=== PATIENT | female | born 1965 | race Caucasian/White ===

== ENCOUNTER 2016-05-21 19:01 | Emergency (ER) | payer SELFPAY ==
[~2016-05-21] VITALS: Ht 167.6 cm; Wt 54.8 kg
[2016-05-21 19:01] VITALS: Ht 167.6 cm; Wt 54.8 kg
--- OUTSIDE RECORDS SUMMARY | 2016-05-21 19:05 | XMS REPORT | Referral Summary ---
Author Author [facility] Organization [facility] Address Unknown Phone Unavailable Care Team Providers Care Occupational Therapist Assistant Name Role Phone No PCP, Pt States Primary Care Physician [phone] Encounter VC Date(s): 01/03/16 - 01/03/[address] [facility] [address] [place], [place] [address] Discharge Disposition: 01-Home or Self Care Attending Physician: Giselle Lujan DO Admitting Physician: Giselle Lujan DO Vital Signs No data available for this section Problem List Condition Effective Dates Status Health Status Informant [place] (hard of Active patient hearing)(Confirmed) Hypothyroid(Confirme Active patient d) Allergies, Adverse Reactions, Alerts Substance Reaction Severity Status penicillin Active Medications ibuprofen 800 mg oral tablet 800 mg 1 tabs, Oral, TID, as needed for pain, # 30 tabs, 0 Refill(s) Start Date: 03/05/15 Status: Ordered levothyroxine Daily, 0 Refill(s) Start Date: 04/29/15 Status: Ordered Results No data available for this section Immunizations No data available for this section Procedures No data available for this section Social History Social History Type Response Smoking Status Current every day smoker; Type: Cigarettes; Tobacco use per day: 1 Pack Assessment and Plan No data available for this section
--- OUTSIDE RECORDS SUMMARY | 2016-05-21 19:05 | XMS REPORT | Referral Summary ---
Author Author [facility] Organization [facility] Address Unknown Phone Unavailable Care Team Providers Care Executive Associate Name Role Phone No PCP, Pt States Primary Care Physician [phone] Encounter VC Date(s): 03/05/15 - 03/05/15 [facility] [address] [place] [address] [phone] Discharge Diagnosis: Shoulder strain Discharge Disposition: 01-Home or Self Care Attending Physician: Brock Harris MD Admitting Physician: Brock Harris MD Vital Signs Most recent to 1 oldest [Reference Range]: Temperature Oral 36.6 degC [35.8-37.3 degC] (03/05/15 4:35 PM) Peripheral Pulse 91 bpm Rate [60-100 bpm] (03/05/15 4:35 PM) Respiratory Rate 16 br/min [14-20 br/min] (03/05/15 5:12 PM) Systolic Blood 120 mmHg Pressure [90-140 (03/05/15 5:12 PM) mmHg] Diastolic Blood 80 mmHg Pressure [60-90 (03/05/15 5:12 PM) mmHg] SpO2 98 % (03/05/15 5:12 PM) Problem List Condition Effective Dates Status Health Status Informant [place] (hard of Active patient hearing)(Confirmed) Hypothyroid(Confirme Active patient d) Allergies, Adverse Reactions, Alerts No Known Allergies Medications ibuprofen 800 mg oral tablet 800 mg 1 tabs, Oral, TID, as needed for pain, # 30 tabs, 0 Refill(s) Start Date: 03/05/15 Status: Ordered Results No data available for this section Immunizations No data available for this section Procedures No data available for this section Social History Social History Type Response Smoking Status Current every day smoker; Type: Cigarettes Assessment and Plan No data available for this section
--- OUTSIDE RECORDS SUMMARY | 2016-05-21 19:05 | XMS REPORT | Referral Summary ---
Author Author [facility] Organization [facility] Address Unknown Phone Unavailable Care Team Providers Care Rn Circulating Name Role Phone Eliz Maynard Primary Care Physician [phone] Encounter [facility] [id number] Date(s): 04/15/16 - 04/15/16 [facility] [address] [place] [address] Discharge Diagnosis: UTI (urinary tract infection) Discharge Disposition: 01-Home or Self Care Attending Physician: Brcok Harris MD Admitting Physician: Brock Harris MD Vital Signs Most recent to 1 oldest [Reference Range]: Temperature Oral 36.5 degC [35.8-37.3 degC] (04/15/16 9:58 PM) Peripheral Pulse 64 bpm Rate [60-100 bpm] (04/15/16 10:55 PM) Respiratory Rate 18 br/min [14-20 br/min] (04/15/16 10:55 PM) Blood Pressure 124/68 mmHg [90-140/60-90 mmHg] (04/15/16 10:55 PM) SpO2 100 % (04/15/16 10:55 PM) Problem List Condition Effective Dates Status Health Status Informant [place] (hard of Active patient hearing)(Confirmed) Hypothyroid(Confirme Active patient d) Allergies, Adverse Reactions, Alerts Substance Reaction Severity Status penicillin Hives Severe Active Dyspnea Medications ciprofloxacin 500 mg oral tablet 500 mg 1 tabs, Oral, BID, for infection, # 14 tabs, 0 Refill(s) Start Date: 04/15/16 Stop Date: 04/22/16 Status: Ordered ibuprofen 800 mg oral tablet 800 mg 1 tabs, Oral, TID, as needed for pain, # 30 tabs, 0 Refill(s) Start Date: 03/05/15 Status: Ordered levothyroxine Daily, 0 Refill(s) Start Date: 04/29/15 Status: Ordered phenazopyridine 100 mg oral tablet 100 mg 1 tabs, Oral, TID, # 9 tabs, 0 Refill(s) Start Date: 04/15/16 Stop Date: 04/18/16 Status: Ordered Results Urinalysis Most recent to 1 oldest [Reference Range]: UA Color Yellow (04/15/16 10:07 PM) UA Appear Sl Cloudy (04/15/16 10:07 PM) UA pH [5.0-8.0] 5.0 (04/15/16 10:07 PM) UA Leuk Est Pos 3+ [Negative] *ABN* (04/15/16 10:07 PM) UA Nitrite Negative [Negative] (04/15/16 10:07 PM) UA Protein Negative [Negative] (04/15/16 10:07 PM) UA Glucose Negative [Negative] (04/15/16 10:07 PM) UA Ketones Negative [Negative] (04/15/16 10:07 PM) UA Urobilinogen Negative [<1.0] (04/15/16 10:07 PM) UA Bili [Negative] Negative (04/15/16 10:07 PM) UA Blood [Negative] Negative (04/15/16 10:07 PM) UA Spec Grav 1.020 [1.003-1.030] (04/15/16 10:07 PM) Type Clean Catch (04/15/16 10:07 PM) UA WBC [0-4 /HPF] >50 /HPF *ABN* (04/15/16 10:07 PM) UA RBC [0-2] 0-2 (04/15/16 10:07 PM) Epithelial Cells 2-5 (04/15/16 10:07 PM) UA Bacteria Occasional *ABN* (04/15/16 10:07 PM) Crystals Amorphous (04/15/16 10:07 PM) UA Mucous Present (04/15/16 10:07 PM) Immunizations No data available for this section Procedures No data available for this section Social History Social History Type Response Smoking Status Current every day smoker; Type: Cigarettes; Tobacco use per day: 1 Pack Assessment and Plan No data available for this section
--- OUTSIDE RECORDS SUMMARY | 2016-05-21 19:05 | XMS REPORT | Referral Summary ---
Author Author [facility] Organization [facility] Address Unknown Phone Unavailable Care Team Providers Care Copyman Name Role Phone No PCP, Pt States Primary Care Physician [phone] Encounter VC Date(s): 05/20/15 - 05/20/15 [facility] [address] [place] [address] [phone] Discharge Diagnosis: Acute UTI Discharge Disposition: 01-Home or Self Care Attending Physician: Brock Harris MD Admitting Physician: Brock Harris MD Vital Signs Most recent to 1 oldest [Reference Range]: Temperature Oral 36.7 degC [35.8-37.3 degC] (05/20/15 5:41 PM) Peripheral Pulse 88 bpm Rate [60-100 bpm] (05/20/15 5:41 PM) Respiratory Rate 16 br/min [14-20 br/min] (05/20/15 5:41 PM) Blood Pressure 104/67 mmHg [90-140/60-90 mmHg] (05/20/15 5:41 PM) SpO2 98 % (05/20/15 5:41 PM) Problem List Condition Effective Dates Status Health Status Informant [place] (hard of Active patient hearing)(Confirmed) Hypothyroid(Confirme Active patient d) Allergies, Adverse Reactions, Alerts Substance Reaction Severity Status penicillin Active Medications Cipro 500 mg oral tablet 500 mg 1 tabs, Oral, q12hr, X 10 days, # 20 tabs, 0 Refill(s) Start Date: 05/20/15 Stop Date: 05/30/15 Status: Ordered ibuprofen 800 mg oral tablet 800 mg 1 tabs, Oral, TID, as needed for pain, # 30 tabs, 0 Refill(s) Start Date: 03/05/15 Status: Ordered levothyroxine Daily, 0 Refill(s) Start Date: 04/29/15 Status: Ordered Results Chemistry Most recent to 1 oldest [Reference Range]: U Beta hCG Ql Negative (05/20/15 5:50 PM) Urinalysis Most recent to 1 oldest [Reference Range]: UA Color Yellow (05/20/15 5:50 PM) UA Appear Cloudy *ABN* (05/20/15 5:50 PM) UA pH [5.0-8.0] 5.5 (05/20/15 5:50 PM) UA Leuk Est Pos 2+ [Negative] *ABN* (05/20/15 5:50 PM) UA Nitrite Negative [Negative] (05/20/15 5:50 PM) UA Protein Pos 1+ [Negative] *ABN* (05/20/15 5:50 PM) UA Glucose Negative [Negative] (05/20/15 5:50 PM) UA Ketones Trace [Negative] *ABN* (05/20/15 5:50 PM) UA Urobilinogen 1.0 mg/dL [<1.0 mg/dL] (05/20/15 5:50 PM) UA Bili [Negative] Positive *ABN* (05/20/15 5:50 PM) UA Blood [Negative] Pos 2+ *ABN* (05/20/15 5:50 PM) UA Spec Grav 1.025 [1.003-1.030] (05/20/15 5:50 PM) Type Clean Catch (05/20/15 5:50 PM) UA WBC [0-4 /HPF] >50 /HPF *ABN* (05/20/15 5:50 PM) UA RBC [0-2] 10-20 *ABN* (05/20/15 5:50 PM) Epithelial Cells 5-10 (05/20/15 5:50 PM) UA Bacteria Moderate *ABN* (05/20/15 5:50 PM) UA Mucous Present (05/20/15 5:50 PM) Microbiology Reports TEST: Affirm Vaginitis Panel STATUS: Auth (Verified) BODY SITE: SOURCE: Cervix/Vaginal COLLECTED DATE/TIME: 05/20/15 6:42 PM Affirm Vaginitis Panel Negative for Trichomonas vaginalis Positive for Gardnerella vaginalis Positive for Gardnerella vaginalis Negative for Shania species Immunizations No data available for this section Procedures No data available for this section Social History Social History Type Response Smoking Status Current every day smoker; Type: Cigarettes; Tobacco use per day: 1 Pack Assessment and Plan No data available for this section
--- OUTSIDE RECORDS SUMMARY | 2016-05-21 19:05 | XMS REPORT | Referral Summary ---
Author Author [facility] Organization [facility] Address Unknown Phone Unavailable Care Team Providers Care Husker Operator Name Role Phone No PCP, Pt States Primary Care Physician [phone] Encounter VC Date(s): 04/29/15 - 04/29/15 [facility] [address] [place] [address] Discharge Diagnosis: Acute UTI Discharge Diagnosis: Acute UTI Discharge Disposition: 01-Home or Self Care Attending Physician: Brock Harris MD Admitting Physician: Brock Harris MD Vital Signs Most recent to 1 oldest [Reference Range]: Temperature Oral 36.8 degC [35.8-37.3 degC] (04/29/15 5:56 PM) Peripheral Pulse 69 bpm Rate [60-100 bpm] (04/29/15 8:18 PM) Respiratory Rate 18 br/min [14-20 br/min] (04/29/15 8:18 PM) Blood Pressure 106/68 mmHg [90-140/60-90 mmHg] (04/29/15 8:18 PM) SpO2 98 % (04/29/15 8:18 PM) Problem List Condition Effective Dates Status Health Status Informant [place] (hard of Active patient hearing)(Confirmed) Hypothyroid(Confirme Active patient d) Allergies, Adverse Reactions, Alerts Substance Reaction Severity Status penicillin Active Medications ibuprofen 800 mg oral tablet 800 mg 1 tabs, Oral, TID, as needed for pain, # 30 tabs, 0 Refill(s) Start Date: 03/05/15 Status: Ordered levothyroxine Daily, 0 Refill(s) Start Date: 04/29/15 Status: Ordered Macrobid 100 mg oral capsule 100 mg 1 caps, Oral, BID, X 10 days, # 20 caps, 0 Refill(s) Start Date: 04/29/15 Stop Date: 05/09/15 Status: Ordered Results Urinalysis Most recent to 1 oldest [Reference Range]: UA Color Straw (04/29/15 7:00 PM) UA Appear Sl Cloudy (04/29/15 7:00 PM) UA pH [5.0-8.0] 6.0 (04/29/15 7:00 PM) UA Leuk Est Pos 3+ [Negative] *ABN* (04/29/15 7:00 PM) UA Nitrite Negative [Negative] (04/29/15 7:00 PM) UA Protein Negative [Negative] (04/29/15 7:00 PM) UA Glucose Negative [Negative] (04/29/15 7:00 PM) UA Ketones Negative [Negative] (04/29/15 7:00 PM) UA Urobilinogen Negative [<1.0] (04/29/15 7:00 PM) UA Bili [Negative] Negative (04/29/15 7:00 PM) UA Blood [Negative] Pos 1+ *ABN* (04/29/15 7:00 PM) UA Spec Grav 1.005 [1.003-1.030] (04/29/15 7:00 PM) Type Clean Catch (04/29/15 7:00 PM) UA WBC [0-4 /HPF] >50 /HPF *ABN* (04/29/15 7:00 PM) UA RBC [0-2] 5-10 *ABN* (04/29/15 7:00 PM) Epithelial Cells 2-5 (04/29/15 7:00 PM) UA Bacteria Rare (04/29/15 7:00 PM) UA Mucous Present (04/29/15 7:00 PM) Immunizations No data available for this section Procedures No data available for this section Social History Social History Type Response Smoking Status Current every day smoker; Type: Cigarettes; Tobacco use per day: 1 Pack Assessment and Plan No data available for this section
--- OUTSIDE RECORDS SUMMARY | 2016-05-21 19:05 | XMS REPORT | Referral Summary ---
Author Author [facility] Organization [facility] Address Unknown Phone Unavailable Care Team Providers Care Billet Inspector Name Role Phone No PCP, Pt States Primary Care Physician [phone] Encounter VC Date(s): 01/06/16 - 01/07/16 [facility] [address] [place] [address] Discharge Diagnosis: Acute UTI Discharge Diagnosis: Hematuria Discharge Disposition: 01-Home or Self Care Attending Physician: Brock Harris MD Admitting Physician: Brock Harris MD Vital Signs Most recent to 1 oldest [Reference Range]: Temperature Oral 36.8 degC [35.8-37.3 degC] (01/06/16 10:24 PM) Peripheral Pulse 79 bpm Rate [60-100 bpm] (01/06/16 11:25 PM) Respiratory Rate 20 br/min [14-20 br/min] (01/06/16 11:25 PM) Blood Pressure 118/80 mmHg [90-140/60-90 mmHg] (01/06/16 11:25 PM) SpO2 98 % (01/06/16 11:25 PM) Problem List Condition Effective Dates Status Health Status Informant [place] (hard of Active patient hearing)(Confirmed) Hypothyroid(Confirme Active patient d) Allergies, Adverse Reactions, Alerts Substance Reaction Severity Status penicillin Active Medications Bactrim DS 800 mg-160 mg oral tablet 1 tabs, Oral, BID, X 7 days, # 14 tabs, 0 Refill(s) Start Date: 01/06/16 Stop Date: 01/13/16 Status: Ordered ibuprofen 800 mg oral tablet 800 mg 1 tabs, Oral, TID, as needed for pain, # 30 tabs, 0 Refill(s) Start Date: 03/05/15 Status: Ordered levothyroxine Daily, 0 Refill(s) Start Date: 04/29/15 Status: Ordered Results Chemistry Most recent to 1 oldest [Reference Range]: Screen, Negative Urine NPT (01/06/16 10:27 PM) Urinalysis Most recent to 1 oldest [Reference Range]: UA Color Yellow (01/06/16 10:24 PM) UA Appear Cloudy *ABN* (01/06/16 10:24 PM) UA pH [5.0-8.0] 6.0 (01/06/16 10:24 PM) UA Leuk Est Pos 3+ [Negative] *ABN* (01/06/16 10:24 PM) UA Nitrite Negative [Negative] (01/06/16 10:24 PM) UA Protein Pos 2+ [Negative] *ABN* (01/06/16 10:24 PM) UA Glucose Negative [Negative] (01/06/16 10:24 PM) UA Ketones Negative [Negative] (01/06/16 10:24 PM) UA Urobilinogen Negative [<1.0] (01/06/16 10:24 PM) UA Bili [Negative] Negative (01/06/16 10:24 PM) UA Blood [Negative] Pos 3+ *ABN* (01/06/16 10:24 PM) UA Spec Grav 1.005 [1.003-1.030] (01/06/16 10:24 PM) Type Clean Catch (01/06/16 10:24 PM) UA WBC [0-4 /HPF] >50 /HPF *ABN* (01/06/16 10:24 PM) UA RBC [0-2 /HPF] >50 /HPF *ABN* (01/06/16 10:24 PM) Epithelial Cells 0-2 (01/06/16 10:24 PM) UA Bacteria Rare (01/06/16 10:24 PM) UA Mucous Present (01/06/16 10:24 PM) Microbiology Reports TEST: Urine Culture STATUS: Order in Progress BODY SITE: SOURCE: Urine COLLECTED DATE/TIME: 01/06/16 10:24 PM Urine Culture - - - - - - - Positive urine culture (even if >100,000 cfu/ml) without presence of symptoms does not require antibiotic treatment unless the patient is or undergoing urinary surgery. Please document as bacteriuria. Escherichia coli >100,000 cfu/ml ORGANISM:Escherichia coli Immunizations No data available for this section Procedures No data available for this section Social History Social History Type Response Smoking Status Current every day smoker; Type: Cigarettes; Tobacco use per day: 1 Pack Assessment and Plan No data available for this section
[2016-05-21] MEDS ORDERED: NORMAL SALINE 1,000 ML IV ONE (19:15)
--- NOTE | 2016-05-21 19:18 | ERPDOC ---
Departure Disposition Decision Date: May 21, 2016 Disposition Decision Time: 20:52 (RONI FRIEDMAN APRN) Disposition: 01 DISCHARGED HOME, SELF-CARE Impression Impression (RONI FRIEDMAN APRN) Impression: Primary Impression: Enteritis Severity: Moderate (RONI FRIEDMAN APRN) Condition: Stable Seen By: Mid-level only (RONI FRIEDMAN APRN) Patient Instructions: Enteritis (ED) Problems/Meds/Labs Reviewed?: Yes Medications reviewed and manag: Yes (RONI FRIEDMAN APRN) Additional Instructions: Continue to drink plenty of fluids at home. I do want you to monitor for severe abdominal pain, vomiting, or fever, Return to ER with any of these. If any further issues/concerns then follow up with your primary care provider. Follow up care ordered?: Yes Mental Status: Alert (RONI FRIEDMAN APRN) HPI - Abdominal Pain General Chief Complaint: Abdominal Pain Stated Complaint: ABD PAIN Time Seen by Provider: 19:10 Source: patient History/Exam Limitations: no limitations (RONI FRIEDMAN APRN) Time Seen by Provider: 08:40 (DIRK CARRASQUILLO MD) HPI - Abdominal Pain Initial Comments She has had some low abdominal pain since yesterday. Has gotten worse over the course of the day. Has not had any vomiting, diarrhea, fever/chills, or constipation. She has never had pain like this in the past. Is worse with movement. Has taken some Advil but it did not help much at all. Denies any urinary symptoms or vaginal discharge. Occurred At: home Onset: Gradual Duration: 12-24 hrs Quality: sharpness Location: suprapubic Radiation: no radiation Activities at Onset: none Associated Symptoms: DENIES: back pain, chest pain, diaphoresis, fatigue, fever /chills, headache, heartburn, nausea/vomiting, rash, shortness of breath, swelling/mass in abdomen, syncope, weakness Hx of Similar Symptoms: No (RONI FRIEDMAN APRN) Allergies: Coded Allergies: Penicillins (Verified Allergy, Unknown, 05/21/16) Review of Systems Constitutional Constitutional: DENIES: chills, dizziness, fatigue, fever, weakness (RONI FRIEDMAN APRN) Cardiovascular Cardiac: DENIES: chest pain, orthopnea Rhythm/Rate: DENIES: irregular beat, palpitations (NOLD,RONI N JEWELRY INSPECTOR) Pulmonary Respiratory: DENIES: cough, dyspnea, sputum, tachypnea (NOLD,RONI N JEWELRY INSPECTOR) GI Upper Abdomen: DENIES: nausea, pain, vomiting Lower Abdomen: pain, DENIES: constipation, diarrhea (NOLD,RONI N JEWELRY INSPECTOR) General: DENIES: dysuria, frequency, urgency (NOLD,RONI N JEWELRY INSPECTOR) Integumentary Skin: DENIES: rash (NOLD,RONI N JEWELRY INSPECTOR) Neurological General: DENIES: headache, numbness, tingling, weakness (NOLD,RONI N JEWELRY INSPECTOR) Physical Exam General General Nourishment: well nourished, well developed, appears stated age, no acute distress, adult General Body Habitus: well groomed ([place],RONI N JEWELRY INSPECTOR) Vitals and Pain First Documented Vital Signs Date Time Temp Pulse Resp B/P Pulse Ox O2 Delivery O2 Flow Rate FiO2 05/21/16 19:01 98.6 80 18 100/49 99 Room Air (DIRK CARRASQUILLO MD) Vitals and Pain Weight: Kilograms: Height (feet): Height (inches): Triage Pain Scale: (RONI FRIEDMAN N SONU) RN VS reviewed by Provider: Yes (RONI FRIEDMAN N JEWELRY INSPECTOR) Normal Exams: Neck: Full range of motion, without adenopathy, JVD, bruits or thyromegaly Chest/Resp: Clear all [place], with good airflow, and symmetry bilaterally CV: Regular rate and rhythm, without murmur or gallop, Pulses 2+ all extremities, capillary refill, <2 seconds all ext., no pedal edema noted Abdomen: Bowel sounds positive, non-distended, no hepatosplenomegaly, masses or bruits noted Lymphatic: No lymphadenopathy, or lymphedema noted Integumentary: No rashes, hives, or bruising noted Neurologic: Patient is alert, and oriented Psychiatric: Patient exhibits, appropriate attention, emotion and affect (ELDER,RONI N JEWELRY INSPECTOR) Abdomen Inspection: NOT FOUND: distention Palpation: FOUND: involuntary guarding, soft, tender (Moderate TTP in the lower abdomen), NOT FOUND: voluntary guarding Auscultation: FOUND: normoactive (NOLD,RONI N JEWELRY INSPECTOR) Differential Diagnoses Considering: Appendicitis, Bowel Obstruction, Gastroenteritis, Ovarian Cyst, Ovarian Torsion, PID/Endometritis, UTI (NOLD,RONI N JEWELRY INSPECTOR) Progress Results/Orders Orders Procedure Category Date Status Time Cbc W/Auto LAB 05/21/16 Complete Diff-Reflex Manual Cmp - Comprehensive LAB 05/21/16 Complete Metabolic Iv Lock (Ed Only) EDM 05/21/16 Transmitted 19:14 Normal Saline (Normal PHA 05/21/16 Complete Saline Iv) 19:15 UA, LAB 05/21/16 Complete Dip&Micro(Complete) & 19:21 Morphine Sulfate PHA 05/21/16 Complete (Morphine) 19:45 Ct Abd/Pelvis CT 05/21/16 Resulted W/Contrast Only 19:44 Iohexol (Omnipaque) PHA 05/21/16 Complete 20:02 Normal Saline (Ns) PHA 05/21/16 Complete 20:02 Saline Flush (Iv PHA 05/21/16 Complete Flush) 20:02 Hydrocodone/Apap PHA 05/21/16 Complete 5/325 Prepack ([place] 5 21:00 (DIRK CARRASQUILLO MD) Lab Results Laboratory Tests Test 05/21/16 19:21 05/21/16 19:28 Urine Collection Type Cleancatch-midstream Urine Color Yellow Urine Turbidity Clear Urine pH 6.0 Urine Specific [place] <=1.005 Urine Protein Negative Urine Glucose (UA) Negative Urine Ketones Negative Urine Blood 1+ Urine Nitrite Negative Urine Bilirubin Negative Urine Urobilinogen 0.2EU/DL Urine Leukocyte Esterase Negative Urine RBC 0-1/HPF Urine WBC 0-1/HPF Urine Squamous Epithelial Cells 0-5 Urine Bacteria Trace Urine Culture Indicated Cult not indicated White Blood Count 13.4T/MM3 Red Blood Count 4.62M/MM3 Hemoglobin 15.0GM/DL Hematocrit 44.1% Mean Corpuscular Volume 95.5UM3 Mean Corpuscular Hemoglobin 32.5UUG Mean Corpuscular Hemoglobin Concent 34.0GM/DL RDW Standard Deviation 40.2FL Platelet Count 243T/MM3 Mean Platelet Volume 10.3UM3 Immature Granulocyte % (Auto) 0.1% Neutrophils (%) (Auto) 75.2% Lymphocytes (%) (Auto) 13.3% Monocytes (%) (Auto) 10.7% Eosinophils (%) (Auto) 0.6% Basophils (%) (Auto) 0.1% Absolute Immature Granulocyte (auto 0.02T/MM3 Absolute Neutrophils (auto) 10.1T/MM3 Absolute Lymphocytes (auto) 1.8T/MM3 Absolute Monocytes (auto) 1.4T/MM3 Absolute Eosinophils (auto) 0.1T/MM3 Absolute Basophils (auto) 0.0T/MM3 Turbidity < 20 Sodium Level 143MEQ/L Potassium Level 4.3MEQ/L Chloride Level 102MEQ/L Carbon Dioxide Level 26MEQ/L Anion Gap 15MEQ/L Blood Urea Nitrogen 11.0MG/DL Creatinine 0.8MG/DL Glomerular Filtration Rate Calc 76 BUN/Creatinine Ratio 14RATIO Glucose Level 92MG/DL Calculated Osmolality 274MOSM/KG Calcium Level 9.4MG/DL Total Bilirubin 1.20MG/DL Icterus Index < 2 Aspartate Amino Transf (AST/SGOT) 20U/L Alanine Aminotransferase (ALT/SGPT) 29U/L Alkaline Phosphatase 52U/L Total Protein 7.2G/DL Albumin 4.1G/DL Globulin 3.1G/DL Albumin/Globulin Ratio 1.3RATIO Chemistry Specimen Hemolysis < 15 (DIRK CARRASQUILLO MD) Medications Current ED Medications Sodium Chloride (Normal Saline IV) 1,000 ml @ 1,000 mls/hr Q1H ONCE IV Last administered on 05/21/16 19:37; Start 05/21/16 at 19:15; Stop 05/21/16 at 20:14; Status DC Morphine Sulfate (Morphine) 4 mg O ONCE IV Last administered on 05/21/16 20:28 ; Start 05/21/16 at 19:45; Stop 05/21/16 at 19:46; Status DC Iohexol 1 bottle 1 bottle STK-MED ONCE .ROUTE ; Start 05/21/16 at 20:02; Stop 05/21/16 at 20:03; Status DC Sodium Chloride (NS) 100 ml @ As Directed STK-MED ONCE .ROUTE ; Start 05/21/16 at 20:02; Stop 05/21/16 at 20:03; Status DC Sodium Chloride (Iv Flush) 10 ml STK-MED ONCE .ROUTE ; Start 05/21/16 at 20:02; Stop 05/21/16 at 20:03; Status DC Acetaminophen/ Hydrocodone Bitart (NORCO 5 (PrePack)) 1 pack O ONCE SENT HOME ; Start 05/21/16 at 21:00; Stop 05/21/16 at 21:01; Status DC (DIRK CARRASQUILLO MD) Progress Progress WBC is 13.4 with 75.2 neutrophils. CMP is normal, UA without signs of infection. CT does show enteritis but no appendicitis. Will go ahead and let her go home today. F/U with PCP this week or return to ER with any severe abdominal pain, vomiting, or fever. (RONI FRIEDMAN APRN) Progress 0830 05/22/16. Called by Dr Noah Das with his overread on the CT scan. He agrees with [facility] that there is some small bowel inflammation, but he also feels that there is some sigmoid diverticulitis that they missed. Called patient and reported new reading. She reports that the Lortab is helping the pain some. She requested that I call in medications to [facility]. Called in Ciprofloxacin 500 mg BID x 10 days and Flagyl 500 mg TID x 10 days. (DIRK CARRASQUILLO MD) CT CT : Reason for Exam: low abdominal pain, RLQ abdominal pain CT: Abd/Pelvis IV contrast Interpretation: Abnormal (1.9cm probably cyst in ruben right ovary, nonspecific mild fluid distention and mild wall thickening of loops of the small bowel (Can represent focal ileus and enteritis), Luminal soft tissue c/w feces in the distal small bowel w/o dilation) (RONI FRIEDMAN APRN) RONI FRIEDMAN APRN May 21, 2016 19:18 DIRK CARRASQUILLO MD May 22, 2016 08:46
[2016-05-21] MEDS ORDERED: LEVO100T12 PO (19:35)
[2016-05-21 19:38] LABS: BLOOD, URINE 1+ (NEGATIVE); COLOR,URINE YELLOW (YELLOW); LEUKOCYTE ESTERASE ,URINE NEGATIVE (NEGATIVE); NITRITE,URINE NEGATIVE (NEGATIVE); UROBILINOGEN,URINE 0.2 EU/DL (NORMAL)
[2016-05-21 19:44] LABS: BASOPHILS % (AUTO) 0.1 % (0-2); EOSINOPHILS # (AUTO) 0.1 T/MM3 (0-0.5); EOSINOPHILS % (AUTO) 0.6 % (0-4); HCT - HEMATOCRIT 44.1 % (36-46); IMMATURE GRANULOCYTE # (AUTO) 0.02 T/MM3 (0.00-0.03); IMMATURE GRANULOCYTE % (AUTO) 0.1 % (0.0-0.5); LYMPHOCYTES # (AUTO) 1.8 T/MM3 (1-4.8); LYMPHOCYTES % (AUTO) 13.3 % (23-45); MEAN CORPUSCULAR HGB 32.5 UUG (26-34); MEAN CORPUSCULAR VOLUME 95.5 UM3 (80-100); MEAN PLATELET VOLUME 10.3 UM3 (9.4-12.4); MONOCYTES # (AUTO) 1.4 T/MM3 (0-0.8); MONOCYTES % (AUTO) 10.7 % (0-9.0); NEUTROPHILS #(AUTO)-ABSOLUTE 10.1 T/MM3 (1.8-7.7); NEUTROPHILS % (AUTO) 75.2 % (33-66); RED BLOOD COUNT 4.62 M/MM3 (4.00-5.20); WBC - WHITE BLOOD COUNT 13.4 T/MM3 (4.5-11.0)
[2016-05-21 19:44] LABS: BACTERIA,URINE TRACE (NEGATIVE); RBC,URINE 0-1 /HPF (0-3); SQUAMOUS EPITHELIAL CELL,UR 0-5; WBC,URINE 0-1 /HPF (0-5)
[2016-05-21] MEDS ORDERED: MORPHINE SULFATE 4 MG SYRINGE IV ONE (19:45)
[2016-05-21 19:48] LABS: ALBUMIN 4.1 G/DL (3.5-5.0); ALBUMIN/GLOBULIN RATIO 1.3 RATIO (1.1-2.2); ALKALINE PHOSPHATASE 52 U/L (38-126); ALT (SGPT) 29 U/L (9-52); ANION GAP 15 MEQ/L (5-15); AST (SGOT) 20 U/L (14-36); BUN/CREATININE RATIO 14 RATIO (6-26); CALCIUM 9.4 MG/DL (8.4-10.2); CHLORIDE 102 MEQ/L (98-107); CO2 - CARBON DIOXIDE 26 MEQ/L (22-30); CREATININE 0.8 MG/DL (0.7-1.2); GLOMERULAR FILTRATION RATE 76; GLUCOSE 92 MG/DL (65-110); POTASSIUM 4.3 MEQ/L (3.6-5); SODIUM 143 MEQ/L (134-144); TOTAL PROTEIN 7.2 G/DL (6.3-8.2)
[2016-05-21] MEDS ORDERED: SALINE FLUSH 10ml SYRINGE ONE (20:02)
[2016-05-21] MEDS ORDERED: NORMAL SALINE 100 ML ONE (20:02)
[2016-05-21] MEDS ORDERED: IOHEXOL 300 MG/ML 100ml INJECTION ONE (20:02)
[2016-05-21] MEDS ORDERED: HYDROCODONE/APAP 5/325 (PrePack) SENT HOME ONE (21:00)
[2016-05-21 21:08] VITALS: BP 101/67; PULSE 80; RESP 18; TEMP 98.6; O2SAT 96
--- NOTE | 2016-05-22 08:17 | DI ---
Indication: ITS.REASON: low abdominal pain PROCEDURE: CT ABD/PELVIS W/CONTRAST ONLY: Encounter: Initial Comparison: None Technique: Axial CT images were performed through the abdomen and pelvis after the administration of intravenous contrast. Coronal and sagittal two-dimensional reformats. Automated Exposure Control and Iterative Reconstruction dose reducing techniques were utilized. Contrast: Omnipaque 300 89 mL Findings: The lung bases are clear. The liver is normal. The gallbladder, spleen, pancreas, adrenal glands and kidneys are within normal limits. No abdominal or pelvic adenopathy. Bladder is normal. Uterus and ovaries are grossly normal for age. Some prominence of the lower uterine segment and cervix region is of uncertain significance. Trace free pelvic fluid. There is no bowel obstruction. Appendix shows no acute inflammation. It does contain a couple appendicoliths. There is a short segment of thickened sigmoid colon with some adjacent inflammation. No free air or abscess identified. Bone windows are unremarkable for age. Impression: Sigmoid colonic inflammation probably representing a mild diverticulitis. Colonoscopy or a flexible sigmoidoscopy after resolution of the acute illness may be helpful to exclude any underlying lesion in this segment. There is a preliminary report by [facility]. The preliminary report does not mention the possibility of diverticulitis and this was called to the emergency department at 0812 on May 22, 2016. .
== END 2016-05-21 21:08 | disposition home or self-care (01) ==
LOC: ED 19:01
DX: K52.9 Noninfective gastroenteritis and colitis, unspecified (principal)
CPT/HCPCS: 80053; 81001; 85025